=== PATIENT | male | born 1945 | race American Indian/Alaskan Native ===

== ENCOUNTER 2017-07-24 07:54 | Emergency (ER) | payer MEDICARE, OTHER ==
[2017-07-24 08:08] VITALS: BP 167/93
[2017-07-24 09:13] LABS: Bacteria,Urine 4+ /HPF (Negative); Bilirubin,Urine NEG (Negative); Blood,Urine LG (Negative); Color,Urine Yellow (Yellow); Mucus,Urine FEW /HPF; Urobilinogen,Urine < 2.0 mg/dL (<2.0)
[2017-07-24 09:20] LABS: WBC,Urine > 182.0 /HPF (0.0-6.0)
[2017-07-24] MEDS ORDERED: XYLOCAINE 1% MPF 5 mL INFILTRATI ONE (10:06)
[2017-07-24] MEDS ORDERED: ROCEPHIN IM ONE (10:06)
--- NOTE | 2017-07-24 10:31 | Emergency Department Report ---
ED Male HPI - General Chief complaint: Urogenital-Male Stated complaint: GROIN PAIN Time Seen by Provider: 07/24/17 09:57 Source: patient, EMS Mode of arrival: Ambulatory Limitations: No Limitations - History of Present Illness Initial comments: This is a 71-year-old male nontoxic, well nourished in appearance, no acute signs of distress presents to the ED complaining of dysuria, hematuria, and polyuria 1 week. Patient denies any sexual intercourse. Patient denies any testicular pain, penile ulcers, or lesions. Patient denies any penile discharge. Patient denies any back pain, fever, chills, nausea, vomiting, chest pain, short of breath, abdominal pain, back pain, stiff neck or headache. Patient denies any allergies. PMH includes hep c and prostate cancer. MD Complaint: dysuria -: week(s) (1) Radiation: none Severity: mild Severity scale (0 -10): 6 Quality: burning Consistency: constant Improves with: none Worsens with: urination urinary retention, blood in urine. denies: discharge, swelling, mass, rash, dysuria, fever, nausea/vomiting, incontinence - Related Data Sexually active: No Previous Rx's Medication Instructions Recorded Last Taken Type Ciprofloxacin [Ciprofloxacin ORAL 500 mg PO Q12H #14 ml 07/24/17 Unknown Rx LIQ] Allergies Allergy/AdvReac Type Severity Reaction Status Date / Time No Known Allergies Allergy Unverified 07/24/17 08:02 ED Review of Systems ROS: Stated complaint: GROIN PAIN Other details as noted in HPI Constitutional: denies: chills, fever Eyes: denies: eye pain, eye discharge, vision change ENT: denies: ear pain, throat pain Respiratory: denies: cough, shortness of breath, wheezing Cardiovascular: denies: chest pain, palpitations Endocrine: no symptoms reported Gastrointestinal: denies: abdominal pain, nausea, diarrhea Genitourinary: urgency, dysuria, frequency, hematuria. denies: discharge, testicular pain, testicular mass Musculoskeletal: denies: back pain, joint swelling, arthralgia Skin: denies: rash, lesions Neurological: denies: headache, weakness, paresthesias Psychiatric: denies: anxiety, depression Hematological/Lymphatic: denies: easy bleeding, easy bruising ED Past Medical Hx - Past Medical History Additional medical history: HEP C PROSTRATE CANCER - Surgical History Additional Surgical History: LASER SURG FOR PROSTRATE CANCER - Social History Smoking Status: Current Every Day Smoker Substance Use Type: Marijuana - Medications Home Medications: Home Medications Medication Instructions Recorded Confirmed Last Taken Type Ciprofloxacin [Ciprofloxacin ORAL 500 mg PO Q12H #14 ml 07/24/17 Unknown Rx LIQ] ED Physical Exam - General Limitations: No Limitations General appearance: alert, in no apparent distress - Head Head exam: Present: atraumatic, normocephalic - Eye Eye exam: Present: normal appearance Pupils: Present: normal accommodation - ENT ENT exam: Present: normal exam, mucous membranes moist - Neck Neck exam: Present: normal inspection, full ROM - Respiratory Respiratory exam: Present: normal lung sounds bilaterally. Absent: respiratory distress - Cardiovascular Cardiovascular Exam: Present: regular rate, normal rhythm. Absent: systolic murmur, diastolic murmur, rubs, gallop - GI/Abdominal GI/Abdominal exam: Present: soft, normal bowel sounds - Rectal Rectal exam: Present: deferred - exam: Present: normal inspection. Absent: testicular tenderness, urethral discharge, scrotal swelling, vertical testicular lie External exam: Present: normal external exam. Absent: erythema, swelling, lesions, lacerations, ecchymosis, bleeding - Extremities Exam Extremities exam: Present: normal inspection, full ROM - Back Exam Back exam: Present: normal inspection, full ROM. Absent: tenderness, CVA tenderness (R), CVA tenderness (L), muscle spasm, paraspinal tenderness, vertebral tenderness, rash noted - Neurological Exam Neurological exam: Present: alert, oriented X3 - Psychiatric Psychiatric exam: Present: normal affect, normal mood - Skin Skin exam: Present: warm, dry, intact, normal color. Absent: rash ED Course Vital Signs 07/24/17 08:02 Temperature 98.3 F Pulse Rate 93 H Respiratory 16 Rate Blood Pressure 167/93 O2 Sat by Pulse 98 Oximetry - Reevaluation(s) Reevaluation #1: 07/24/17 10:33 Patient is speaking in full sentences with no signs of distress noted. ED Medical Decision Making - Medical Decision Making 71-year-old male that presents with UTI. Patient is stable and was examined by me. Urine culture pending. Patient received 1 g of Rocephin. Patient is discharged with Cipro. No CVA tenderness. Patient was referred to Follow-up with a primary care doctor in 3-5 days or if symptoms worsen and continue return to emergency room as soon as possible. At time of discharge, the patient does not seem toxic or ill in appearance. No acute signs of distress noted. Patient agrees to discharge treatment plan of care. No further questions noted by the patient. Critical care attestation.: If time is entered above; I have spent that time in minutes in the direct care of this critically ill patient, excluding procedure time. ED Disposition Clinical Impression: UTI (urinary tract infection) Qualifiers: Urinary tract infection type: site unspecified Hematuria presence: with hematuria Qualified Code(s): N39.0 - Urinary tract infection, site not specified ; R31.9 - Hematuria, unspecified Disposition: - TO HOME OR SELFCARE Is pt being admited?: No Does the pt Need Aspirin: No Condition: Stable Instructions: Urinary Tract Infection in Men (ED), Ciprofloxacin (By mouth) Additional Instructions: Follow-up with a primary care doctor in 3-5 days or if symptoms worsen and continue return to emergency room as soon as possible. Prescriptions: Ciprofloxacin [Ciprofloxacin ORAL LIQ] 500 mg PO Q12H #14 ml Referrals: PRIMARY CAREMD [Primary Care Provider] - 3-5 Days GRADY DALTON MD [Staff Physician] - 3-5 Days [facility] [Outside] - 3-5 Days [facility] [Outside] - 3-5 Days
== END 2017-07-24 10:46 | disposition home or self-care (01) ==
LOC: ED 07:54
DX: N39.0 Urinary tract infection, site not specified (principal); R31.9 Hematuria, unspecified; C61 Malignant neoplasm of prostate; F17.200 Nicotine dependence, unspecified, uncomplicated; F12.90 Cannabis use, unspecified, uncomplicated
CPT/HCPCS: 81001; 87076; 87086; 87186; 96372; 99284; J0696